=== PATIENT | male | born 1940 | race Caucasian/White ===

== ENCOUNTER → 2023-08-31 09:33 | Outpatient (REF) | payer MEDICARE, OTHER, SELFPAY | LOC: RAD 09:33 | PROVIDERS: ATTENDING PHYSICIAN Surgery Vascular Surgery; FAMILY PHYSICIAN Family Medicine | DX: I71.40 Abdominal aortic aneurysm, without rupture, unspecified (principal); I73.9 Peripheral vascular disease, unspecified; I65.23 Occlusion and stenosis of bilateral carotid arteries | CPT/HCPCS: 93880; 93922; 93925 ==

== ENCOUNTER → 2023-09-24 12:58 | Outpatient (REF) | payer MEDICARE, OTHER, SELFPAY ==
[2023-09-24 13:50] LABS: % Basophils 0.2 % (0-2); % Eosinophils 2.1 % (0-6); % Immature Granulocytes 0.4 % (0-0.5); % Lymphocytes 12.1 % (20.5-51.1); % Monocytes 6.1 % (1.7-9.3); % Neutrophils 79.1 % (42.2-75.2); Absolute Eosinophils 0.2 10^3/uL (0-0.7); Absolute Monocytes 0.5 10^3/uL (0.1-0.6); Absolute Neutrophils 6.3 10^3/uL (1.4-6.5); Hemoglobin 13.1 g/dL (13.0-18.0); Mean Corp Hgb Conc. 34.5 g/dL (33.0-37.0); Mean Corpuscular Hgb 33.4 pg (27.0-31.0); Mean Corpuscular Volume 96.9 fL (80.0-94.0); Mean Platelet Volume 9.8 fL (7.4-10.4); Nucleated Red Blood Cells % 0 % (-); Platelet Count 142 10^3/uL (130-400); Red Blood Cell Count 3.92 10^6/uL (4.70-6.10); Red Cell Dist. Width 14.6 % (11.5-14.5)
[2023-09-24 14:58] LABS: ALT (SGPT) 16 U/L (0-50); AST (SGOT) 29 U/L (17-59); Albumin 4.1 g/dl (3.5-5.0); Alkaline Phosphatase 110 U/L (38-126); Blood Urea Nitrogen 23 mg/dl (9-20); Calcium 9.2 mg/dl (8.4-10.2); Carbon Dioxide 29 mmol/L (22-30); Chloride 102 mmol/L (98-107); Glucose 75 mg/dl (70-99); HDL Cholesterol 55 mg/dl; LDL Cholesterol, Calculated 56 mg/dl; Potassium 3.8 mmol/L (3.5-5.1); Sodium 140 mmol/L (135-145); Total Bilirubin 1.3 mg/dl (0.2-1.3); Total Cholesterol 131 mg/dl (50-199); Total Protein 6.6 g/dl (6.3-8.2); Triglyceride 101 mg/dl (10-149); Very Low Density Lipoprotein 20 mg/dl (0-30); eGFR > 60.00
== END ==
LOC: REG 12:58
PROVIDERS: ATTENDING PHYSICIAN Family Medicine
DX: I50.32 Chronic diastolic (congestive) heart failure (principal); E78.00 Pure hypercholesterolemia, unspecified; R35.0 Frequency of micturition
CPT/HCPCS: 36415; 80053; 80061; 85025; 87086

== ENCOUNTER → 2024-03-18 14:42 | Outpatient (REF) | payer MEDICARE, OTHER, SELFPAY | LOC: RAD 14:42 | PROVIDERS: ATTENDING PHYSICIAN Surgery Vascular Surgery; FAMILY PHYSICIAN Family Medicine | DX: I73.9 Peripheral vascular disease, unspecified (principal) | CPT/HCPCS: 93922; 93925 ==

== ENCOUNTER → 2024-04-03 13:00 | Outpatient (REF) | payer MEDICARE, OTHER, SELFPAY ==
[2024-04-03 14:29] LABS: % Basophils 0.3 % (0-2); % Eosinophils 2.5 % (0-6); % Immature Granulocytes 0.7 % (0-0.5); % Lymphocytes 11.4 % (20.5-51.1); % Monocytes 6.7 % (1.7-9.3); % Neutrophils 78.4 % (42.2-75.2); Absolute Eosinophils 0.2 10^3/uL (0-0.7); Absolute Immature Granulocytes 0.1 10^3/uL (0-0.05); Absolute Lymphocytes 0.8 10^3/uL (1.2-3.4); Absolute Monocytes 0.5 10^3/uL (0.1-0.6); Absolute Neutrophils 5.6 10^3/uL (1.4-6.5); Hematocrit 38.5 % (39.0-52.0); Hemoglobin 12.7 g/dL (13.0-18.0); Mean Corpuscular Hgb 32.4 pg (27.0-31.0); Mean Corpuscular Volume 98.2 fL (80.0-94.0); Mean Platelet Volume 9.7 fL (7.4-10.4); Nucleated Red Blood Cells % 0 % (-); Platelet Count 150 10^3/uL (130-400); Red Blood Cell Count 3.92 10^6/uL (4.70-6.10); Red Cell Dist. Width 14.5 % (11.5-14.5); White Blood Cell Count 7.2 10^3/uL (4.8-10.8)
[2024-04-03 14:39] LABS: Urine Albumin Negative (Neg - Trace); Urine Bilirubin Negative (Negative); Urine Character Clear (Clear); Urine Color Yellow; Urine Glucose Negative (Negative); Urine Ketone Negative (Negative); Urine Leukocyte Negative (Negative); Urine Nitrite Negative (Negative); Urine Occult Blood Negative (Negative); Urine Urobilinogen Negative (Neg - 1+)
[2024-04-03 15:00] LABS: Blood Urea Nitrogen 16 mg/dl (9-20); Carbon Dioxide 33 mmol/L (22-30); Chloride 98 mmol/L (98-107); Glucose 98 mg/dl (70-99); Potassium 3.8 mmol/L (3.5-5.1); Sodium 141 mmol/L (135-145); eGFR 49.56
== END ==
LOC: REG 13:00
PROVIDERS: ATTENDING PHYSICIAN Family Medicine
DX: Z01.818 Encounter for other preprocedural examination (principal)
CPT/HCPCS: 36415; 80048; 81003; 85025

== ENCOUNTER 2024-05-26 12:34 | Outpatient (RCR) | payer MEDICARE, OTHER, SELFPAY | END 2024-05-26 23:59 | disposition home or self-care (01) | LOC: RPT 12:34 | PROVIDERS: ATTENDING PHYSICIAN Physician Assistant Surgical; FAMILY PHYSICIAN Family Medicine | DX: M25.561 Pain in right knee (principal); M25.562 Pain in left knee; Z73.6 Limitation of activities due to disability; R26.2 Difficulty in walking, not elsewhere classified; M62.81 Muscle weakness (generalized); M25.512 Pain in left shoulder; Z91.81 History of falling | CPT/HCPCS: 97162; 97530 ==

== ENCOUNTER 2024-07-08 13:42 | Inpatient (IN) | payer MEDICARE, OTHER, SELFPAY ==
[2024-07-07] VITALS (15 sets, daily range): BP systolic 111–187; BP diastolic 55–80; PULSE 68; O2SAT 97; BMI 22.4
[2024-07-07 01:54] LABS: Hematocrit 36.5 % (39.0-52.0); Hemoglobin 12.5 g/dL (13.0-18.0); Mean Corp Hgb Conc. 34.2 g/dL (33.0-37.0); Mean Corpuscular Hgb 32.1 pg (27.0-31.0); Mean Corpuscular Volume 93.8 fL (80.0-94.0); Mean Platelet Volume 9.5 fL (7.4-10.4); Platelet Count 158 10^3/uL (130-400); Red Blood Cell Count 3.89 10^6/uL (4.70-6.10); Red Cell Dist. Width 14.8 % (11.5-14.5); White Blood Cell Count 8.8 10^3/uL (4.8-10.8)
[2024-07-07 02:12] LABS: ALT (SGPT) 17 U/L (0-50); AST (SGOT) 28 U/L (17-59); Albumin 4.4 g/dl (3.5-5.0); Alkaline Phosphatase 140 U/L (38-126); Blood Urea Nitrogen 22 mg/dl (9-20); Calcium 8.7 mg/dl (8.4-10.2); Carbon Dioxide 24 mmol/L (22-30); Chloride 102 mmol/L (98-107); Estimated Creatinine Clearance 48 ml/min; Glucose 114 mg/dl (70-99); Potassium 3.5 mmol/L (3.5-5.1); Sodium 140 mmol/L (135-145); Total Bilirubin 1.6 mg/dl (0.2-1.3); Total Protein 6.9 g/dl (6.3-8.2); eGFR > 60.00
[2024-07-07 04:42] LABS: Urine Albumin Negative (Neg - Trace); Urine Bilirubin Negative (Negative); Urine Character Clear (Clear); Urine Color Yellow; Urine Glucose Negative (Negative); Urine Ketone Negative (Negative); Urine Leukocyte Negative (Negative); Urine Nitrite Negative (Negative); Urine Occult Blood Negative (Negative); Urine Specific Gravity 1.015 (<1.030); Urine Urobilinogen Negative (Neg - 1+)
[2024-07-07 04:59] LABS: Lipase 80 U/L (23-300)
--- NOTE | 2024-07-07 06:26 | ED.GENMED ---
History of Present Illness
General
Chief Complaint: Headache
Source: patient and family
Exam Limitations: none
Time Seen by Provider: 07/07/24 06:09
History of Present Illness
History of Present Illness:
83-year-old male who presents with headache and dizziness that started at around midnight. Patient states he was fine during the day and suddenly felt the symptoms come on. Patient also states he got dizzy and started vomiting. He is
anticoagulated due to history of A-fib. Daughter states that she called him after work and he seemed fine. She states he was confused the last night. He did not know his age at all saying things that did not make sense. The patient states he
does feel a bit better but does still have symptoms. No fevers. No chest pain. No cough.
Past History
Past History
ED Past Medical History: Arrthythmia (Atrial fibrillation), CAD, COPD, GERD, HTN, Hypercholesterolemia, PR, Other (Peripheral vascular disease) and Other (ischemic colitis with bowel resection appendectomy and cholecystectomy)
ED Past Surgical History: Other (Carotid endarterectomy, iliac stent)
Social History
Tobacco: Former smoker
Alcohol: None
Drug: None
Personal:
Living: with family
Employment: Retired
Family History
Family History: Other (Noncontributory)
Phy Exam
Physical Exam
Physical Exam:
CONSTITUTIONAL Patient alert and oriented to person, place and time. Well-appearing. Vital signs reviewed.
HEAD atraumatic, normocephalic.
EYES eyelids normal to inspection, Extraocular muscles intact, Conjunctiva normal, Sclera normal.
NECK normal range of motion, Trachea midline, no jugular venous distention.
RESPIRATORY CHEST No respiratory distress noted, Chest expansion equal, Bilateral breath sounds clear.
CARDIOVASCULAR irregularly irregular
ABDOMEN abdomen nontender, Bowel sounds normal. No distention.
BACK normal inspection, no obvious deformities
UPPER EXTREMITY range of motion normal, Motor strength normal, no cyanosis, no edema.
LOWER EXTREMITY range of motion normal, Motor strength normal, no cyanosis, no edema.
NEURO Speech normal, No focal motor deficits, Cranial Nerves intact to screening exam. Normal [id number]. No pronator drift
SKIN skin warm, dry, and normal in color.
Course
Orders/Labs/Results
Orders:
Orders
07/07/24 01:26
CMP [Comprehensive Metabolic Panel] Urgent
Lipase Urgent
Comment: ADD ON
07/07/24 01:27
Complete Blood Count/No Diff Urgent
07/07/24 01:28
CT Head W/o Iv Contrast Urgent
Comment:
Reason For Exam: fall, dizzy, VAUGHN, +blood thinners
07/07/24 04:22
Add On- LAB Urgent
Tests Added?: Lipase
07/07/24 04:26
Urine Culture Reflexed from UA [Urinalysis Reflex To Culture] Urgent
Date Specimen was Collected: 07/07/24
Time Specimen was Collected: 04:21
07/07/24 06:25
CT Head & Neck Angio W/wo IV Urgent
Comment:
Reason For Exam: dizziness, nausea, VAUGHN
07/07/24 06:32
Electrocardiogram (*1) Urgent
Reason for Study: Vertigo / Dizzy
EKG- Treatment ONCE
Abnormal Lab Results
07/07/24 07/07/24
01:26 01:27
RBC 3.89 L 10^6/uL
(4.70-6.10)
Hgb 12.5 L g/dL
(13.0-18.0)
Hct 36.5 L %
(39.0-52.0)
MCH 32.1 H pg
(27.0-31.0)
RDW 14.8 H %
(11.5-14.5)
BUN 22 H mg/dl
(9-20)
Glucose 114 H mg/dl
(70-99)
Total Bilirubin 1.6 H mg/dl
(0.2-1.3)
Alkaline Phosphatase 140 H U/L
(38-126)
07/07/24 01:27
07/07/24 01:26
Vital Signs
Initial and Last Documented VS:
Initial Vital Signs
Temp Pulse Resp BP Pulse Ox
96.9 F L 71 29 180/70 98
07/07/24 01:13 07/07/24 01:13 07/07/24 01:13 07/07/24 01:13 07/07/24 01:13
Last Documented Vital Signs
Temp Pulse Resp BP Pulse Ox
97.6 F 76 14 181/73 94
07/07/24 04:21 07/07/24 09:05 07/07/24 09:05 07/07/24 09:05 07/07/24 07:00
MDM/Problems Addressed
Differential Diagnosis Includes:
CVA, dissection, vertigo, central vertigo, peripheral vertigo, electrolyte imbalance, arrhythmia
MDM/Problems Addressed:
Chronic A-fib, acute headache, acute uncontrolled hypertension
*Radiology
Radiology exam reviewed: radiology read reviewed
*Pulse Oximetry
Patient hypoxic: no
*[employer] Consult[employer] Interpretation
Rate: normal
Interpretation: abnormal
Rhythm: a-fib
*Critical Care Note
Total Time (30-74mins, 75-104mins- exclusive of procedures): Not Applicable
Data Reviewed
Review of Other/Old Records Reveals: Testing ([facility] reviewed from June 2022 showing early thrombus)
Source: patient and family
Prescriptions/Medications Considered But Not Given:
Consider TNK but no focal neurologic findings
Patient Management
Discussion with other providers: Hospitalist
Escalation/DeEscalation of care consider admission/obs:
Elderly patient with history of atrial clot history of risk factors who presents with acute onset of dizziness, vomiting and change in mental status. Also admits to headache. CT imaging noted. Given his risk factors may benefit from neurology
evaluation possibly MRI.
ED Attending Note
-
Portions of this chart may have been created with voice recognition software.� Occasional wrong word or��sound alike� substitutions may have occurred due to the inherent limitations of voice recognition software.
Discharge Plan
Departure
Prescriptions:
No Action
pantoprazole 40 MG tablet,delayed release (DR/EC)
40 mg PO BID
furosemide 40 MG tablet
40 mg PO DAILY Qty: 30 6RF
atorvastatin 80 MG tablet
80 mg PO QPM
allopurinol 100 MG tablet
100 mg PO DAILY
aspirin 81 MG tablet,delayed release (DR/EC)
81 mg PO DAILY
dicyclomine 10 MG capsule
10 mg PO BID
ezetimibe 10 MG tablet
10 mg PO DAILY
carvedilol 3.125 MG tablet
3.125 mg PO DAILY
fluticasone furoate-vilanterol [Breo Ellipta] 1 EACH blister with device
1 inh IH BID
ipratropium-albuterol 0.5 mg-3 mg(2.5 mg base)/3 mL Solution For Nebulization
3 ml INHALATION Q4H PRN (Reason: sob)
potassium chloride [Klor-Con 10] 10 mEq Tablet Extended Release
10 meq PO DAILY
Eliquis 5 mg Tablet
5 mg PO BID
sertraline 25 MG tablet
25 mg PO HS
sertraline 50 MG tablet
50 mg PO HS
Referrals:
Aretha Serna DO [Family Provider] -
Interventions
Interventions:
*Risk Screen - Suicide Last Done: 07/07/24 01:13
*General Assessment Last Done: 07/07/24 01:13
*Neglect/Abuse Screening Last Done: 07/07/24 01:13
*ED- Fall Risk Assessment Last Done: 07/07/24 01:13
ED- Neurological Assessment Last Done: 07/07/24 01:29
Discharge Date and Time
Print Language: GABONESE
--- NOTE | 2024-07-07 10:27 | HPS.HSE ---
Family Physician
-
Family Physician: Aretha Serna
Chief Complaint
-
Nausea, vomiting, lightheadedness.
History of Present Illness
Patient is 83 years old male with extensive cardiovascular history who presents from home with rather acute onset of nausea, vomiting, abdominal discomfort following with lightheadedness. All symptoms started the evening prior to presentation to
the emergency room. Patient denies any abdominal pain, diarrhea or hematochezia. She denies any loss of consciousness, respiratory complaints. He denies any focal neurologic symptoms. Patient denies any urinary symptoms. He denies any fever or
chills. Denies any loss of consciousness.
Patient lives independently. Has chronic ambulatory dysfunction predominantly secondary to advanced left knee osteoarthritis. Uses walker.
Patient reports visit to the emergency room close to 2 weeks prior to this presentation after fall where he was found to have 5 broken ribs on the left.
Medical History
Past Medical History
Past Medical History: Reports Arrhythmia, CAD and CHF
Additional Past Medical History:
1. Osteoarthritis.
2. Hypertension.
3. Hyperlipidemia.
4. Coronary artery disease/myocardial infarction, status post PCI
with stent to LM-LAD 2016; on Aspirin.
5. Bilateral carotid artery stenosis, status post left carotid
endarterectomy, 2010, and right carotid endarterectomy 2018.
6. Peripheral vascular disease with claudication, status post left
common iliac artery stent and bilateral external iliac artery
stents 2010.
7. Left subclavian stenosis, asymptomatic.
8. Paroxysmal atrial fibrillation, pharmacological therapy with
Carvedilol, oral anticoagulation with Eliquis.
9. Persistent left atrial appendage thrombus, on Eliquis.
10. Congestive heart failure, mildly reduced ejection fraction.
11. Mild valvular disease.
12. COPD.
13. Chronic kidney disease, stage 3.
14. GERD.
15. History of diverticulitis per records.
16. Ischemic colitis, status post hemicolectomy 01/2018.
17. Mesenteric ischemia, status post stenting of superior
mesenteric artery.
18. Chronic diarrhea.
19. Multilevel degenerative disc disease.
20. Ambulatory dysfunction.
21. Migraines.
22. Anemia, likely of chronic disease.
23. Gout.
24. Depression.
25. Hearing impairment bilaterally.
26. Current, infrequent tobacco use.
27. Daily alcohol.
Past Surgical History: Reports Other
Social History
Tobacco: Non-smoker
Alcohol: Daily
Drug: None
Personal:
Living: With Family
Employment: Not Employed
Family History
Family History: Not pertinent
Allergies / Home Medications
Allergies reflects when Allergies were last updated in [employer].
Home Medications with original date entered in [facility]
Allergy/Medication List:
Allergies
Allergy/AdvReac Type Severity Reaction Status Date / Time
acetaminophen [From Tylenol] Allergy Itching Verified 07/07/24 01:25
ketorolac [From Toradol] Allergy Itching Verified 07/07/24 01:25
shellfish derived Allergy Swelling Verified 07/07/24 01:25
Home Medications
pantoprazole 40 mg tablet,delayed release 40 mg PO BID Gastrointestinal issue 08/09/16
furosemide 40 mg tablet 40 mg PO DAILY #30 tabs 08/22/16
allopurinol 100 mg tablet 100 mg PO DAILY Gout 10/24/17
aspirin 81 mg tablet,delayed release 81 mg PO DAILY Blood clot prevention/tx 10/24/17
atorvastatin 80 mg tablet 80 mg PO QPM High cholesterol 10/24/17
dicyclomine 10 mg capsule 10 mg PO BID Gastrointestinal issue 07/01/18
carvedilol 3.125 mg tablet 3.125 mg PO DAILY Heart disease 11/23/18
ezetimibe 10 mg tablet 10 mg PO DAILY High cholesterol 11/23/18
fluticasone furoate 100 mcg-vilanterol 25 mcg/dose inhalation powder (Breo Ellipta) 1 inh IH BID Lung/breathing issues 04/04/19
ipratropium 0.5 mg-albuterol 3 mg (2.5 mg base)/3 mL nebulization soln 3 ml inhalation Q4H PRN sob 05/02/22
potassium chloride 10 mEq tablet,extended release (Klor-Con) 10 meq PO DAILY 05/02/22
apixaban 5 mg tablet (Eliquis) 5 mg PO BID 07/04/22
sertraline 25 mg tablet 25 mg PO HS 07/25/23
sertraline 50 mg tablet 50 mg PO HS 07/25/23
Review of Systems
-
A 12 point ROS was completed and negative except as noted: Yes
Physical Exam
Vital Signs
Vital Signs
Temp Pulse Resp BP Pulse Ox
97.6 F 76 16 181/73 94
07/07/24 04:21 07/07/24 09:05 07/07/24 10:02 07/07/24 09:05 07/07/24 07:00
Physical Exam
General: Well Developed, Well Nourished and No Apparent Distress
HEENT: NormoCephalic, Moist mucous membranes and Atraumatic
Respiratory: Clear
Cardiac: S1/S2 and Regular Rhythm; No Murmur or Rub
GI: Soft, Non Tender, Non Distended and Normal Bowel Sounds; No Organomegaly
Rectal: Deferred by Provider
Musculoskeletal: No Clubbing, No Cyanosis and No Edema
Skin: No Rash
Neuro: Nonfocal/grossly intact
Laboratory Results
-
07/07/24 01:27
07/07/24 01:26
Laboratory Results
Total Bilirubin 1.6 mg/dl (0.2-1.3) H 07/07/24 01:26
AST 28 U/L (17-59) 07/07/24 01:26
ALT 17 U/L (0-50) 07/07/24 01:26
Alkaline Phosphatase 140 U/L (38-126) H 07/07/24 01:26
Lipase 80 U/L (23-300) 07/07/24 01:26
Impression/Plan
-
IMPRESSION:
Presentation with acute onset of nausea, vomiting, abdominal discomfort and lightheadedness.
Acute gastroenteritis suspected
Lightheadedness without dizziness or vertigo and no focal neurologic findings.
Prolonged QT
Mild hypokalemia
Recent fall with left-sided rib fractures
Other conditions:
Coronary artery disease/myocardial infarction, status post PCI. with stent to LM-LAD 2016; on Aspirin.
Bilateral carotid artery stenosis, status post left carotid enterectomy 2010 and right carotid enterectomy 2018
PAD, status post left common iliac artery stent and bilateral external iliac artery stents 2010.
Left subclavian stenosis, asymptomatic
Paroxysmal atrial fibrillation with left atrial appendage thrombus. On anticoagulation with Eliquis.
Chronic CHF mildly reduced EF 45-50%.
Mild valvular disease.
COPD.
Chronic kidney disease stage III by history.
GERD.
Diverticulitis.
History of mesenteric ischemia with stenting of superior mesenteric artery
Status post hemicolectomy 01/2018
Chronic diarrhea.
Chronic ambulatory dysfunction, multifactorial due to DJD including advanced left knee osteoarthritis.
Gout.
Infrequent tobacco use
Daily alcohol use
PLAN:
Presentation with acute onset of nausea, vomiting and abdominal discomfort
Afebrile, nontoxic-appearing
Abdominal examination benign.
LFTs only relevant for mild hyperbilirubinemia at 1.6.
? Acute gastroenteritis.
Patient does have a history of mesenteric ischemia with SMA stent in place.
Admit for close monitoring.
Clear liquid diet.
Follow serial abdominal examination
Follow electrolytes.
Hold dicyclomine
Lightheadedness.
Patient denies any dizziness or vertigo.
Denies falls or loss of consciousness.
Neurologic examination without focal findings.
CT of the head/CTA with no acute abnormalities.
Continue close monitoring
Orthostatic vitals.
Chronic CHF mildly reduced EF.
Volume status rather compensated possibly mild dehydration given increased BUN.
Will continue preadmission regimen including Coreg.
Check for CHF BNP as a baseline
Resume oral Lasix on 07/07.
Paroxysmal atrial fibrillation.
Left atrial appendage thrombus.
Rate control with Coreg.
Anticoagulation Eliquis
Prolonged QTc.
Mild hypokalemia
Replete potassium.
Follow ECG in the morning
CAD with history of revascularization as above.
Continue Coreg
Continue aspirin, statin, Zetia
Chronic ambulatory dysfunction, multifactorial due to severe osteoarthritis of the left knee, spinal DJD.
Recent fall with left-sided rib fracture.
Check chest x-ray for follow-up.
Physical therapy evaluation
Full code
DVT prophylaxis:
[2024-07-07 11:26] LABS: NT-proBNP 6380 pg/ml; Troponin I 0.021 ng/ml
[2024-07-07] MEDS: KCL 40 MEQ PO (13:38)
[2024-07-07] MEDS: ASPIR LOW (ENTERIC COATED) 81 MG PO (13:39)
[2024-07-07] MEDS: ELIQUIS 5 MG PO ×2 (13:39→20:17)
[2024-07-07] MEDS: COREG 3.125 MG PO (13:41)
[2024-07-07] MEDS: ZYLOPRIM 100 MG PO (13:41)
[2024-07-07] MEDS: LIPITOR 80 MG PO (17:07)
[2024-07-07] MEDS: ULTRAM 50 MG PO (17:54)
--- NOTE | 2024-07-07 18:55 | PTCARENOTE ---
Pt admitted to rm 339-1 from ER. C/o lightheadedness - transferred to bed from stretcher. Calm/cooperative, Ox3, VSS. C/o 10/19 headache. TT to cross cover provider - ordered tramadol x 1, administered. NIH completed, scored a 0. Discussed with
hospitalist if need to continue - no focal neuro complaints, no concern to continue NIH.
[2024-07-07] MEDS: SYMBICORT 80/4.5 MCG INHALER 2 PUFF INH (19:49)
[2024-07-07] MEDS: MOTRIN 200 MG PO (20:15)
[2024-07-07] MEDS: PROTONIX 40 MG PO (20:17)
[2024-07-07] MEDS: ZOLOFT 25 MG PO (23:04)
[2024-07-07] MEDS: ZOLOFT 50 MG PO (23:04)
[2024-07-08] VITALS (7 sets, daily range): BP systolic 113–165; BP diastolic 60–90; PULSE 72–80
--- NOTE | 2024-07-08 04:46 | PTCARENOTE ---
PT received prescribed prn tramadol for headache 8 out of 10. After 1 hour Pt reassessed and pain was still 8 out of 10 so provider contacted. Motrin was then given which helped PT sleep through the night.
[2024-07-08] MEDS: SYMBICORT 80/4.5 MCG INHALER 2 PUFF INH ×2 (07:54→19:53)
[2024-07-08] MEDS: ASPIR LOW (ENTERIC COATED) 81 MG PO (08:43)
[2024-07-08] MEDS: LASIX 40 MG PO (08:43)
[2024-07-08] MEDS: ZYLOPRIM 100 MG PO (08:43)
[2024-07-08] MEDS: PROTONIX 40 MG PO ×2 (08:43→20:23)
[2024-07-08] MEDS: ZETIA 10 MG PO (08:43)
[2024-07-08] MEDS: ELIQUIS 5 MG PO ×2 (08:43→20:23)
[2024-07-08] MEDS: COREG 3.125 MG PO (08:44)
[2024-07-08] MEDS: KCL 10 MEQ PO (08:51)
[2024-07-08 11:34] LABS: % Basophils 0.1 % (0-2); % Eosinophils 0.7 % (0-6); % Immature Granulocytes 0.3 % (0-0.5); % Lymphocytes 10.5 % (20.5-51.1); % Monocytes 5.8 % (1.7-9.3); % Neutrophils 82.6 % (42.2-75.2); Absolute Eosinophils 0.1 10^3/uL (0-0.7); Absolute Lymphocytes 0.7 10^3/uL (1.2-3.4); Absolute Monocytes 0.4 10^3/uL (0.1-0.6); Absolute Neutrophils 5.8 10^3/uL (1.4-6.5); Hematocrit 34.1 % (39.0-52.0); Hemoglobin 11.4 g/dL (13.0-18.0); Mean Corp Hgb Conc. 33.4 g/dL (33.0-37.0); Mean Corpuscular Hgb 31.9 pg (27.0-31.0); Mean Corpuscular Volume 95.5 fL (80.0-94.0); Mean Platelet Volume 9.6 fL (7.4-10.4); Nucleated Red Blood Cells % 0 % (-); Platelet Count 120 10^3/uL (130-400); Red Blood Cell Count 3.57 10^6/uL (4.70-6.10); White Blood Cell Count 7.1 10^3/uL (4.8-10.8)
[2024-07-08 11:53] LABS: Blood Urea Nitrogen 22 mg/dl (9-20); Calcium 8.7 mg/dl (8.4-10.2); Carbon Dioxide 27 mmol/L (22-30); Chloride 103 mmol/L (98-107); Estimated Creatinine Clearance 44 ml/min; Glucose 95 mg/dl (70-99); Potassium 4.1 mmol/L (3.5-5.1); Sodium 138 mmol/L (135-145); eGFR 59.63
[2024-07-08] MEDS: TYLENOL 650 MG PO ×2 (13:13→20:21)
--- NOTE | 2024-07-08 13:42 | W.PN.HOSP.TC ---
Today's Communication/Plan
-
Advance diet.
Continue oral Lasix.
Monitor for orthostasis.
Monitor volume status closely if hypoxic would be a low threshold to provide additional diuresis
Physical therapy assessment.
Assessment / Plan
Assessment / Plan
IMPRESSION:
Presentation with acute onset of nausea, vomiting, abdominal discomfort and lightheadedness.
Acute gastroenteritis suspected
Lightheadedness without dizziness or vertigo and no focal neurologic findings.
Prolonged QT
Mild hypokalemia
Headache
Recent fall with left-sided rib fractures
Other conditions:
Coronary artery disease/myocardial infarction, status post PCI. with stent to LM-LAD 2016; on Aspirin.
Bilateral carotid artery stenosis, status post left carotid enterectomy 2010 and right carotid enterectomy 2018
PAD, status post left common iliac artery stent and bilateral external iliac artery stents 2010.
Left subclavian stenosis, asymptomatic
Paroxysmal atrial fibrillation with left atrial appendage thrombus. On anticoagulation with Eliquis.
Chronic CHF mildly reduced EF 45-50%.
Mild valvular disease.
COPD.
Chronic kidney disease stage III by history.
GERD.
Diverticulitis.
History of mesenteric ischemia with stenting of superior mesenteric artery
Status post hemicolectomy 01/2018
Chronic diarrhea.
Chronic ambulatory dysfunction, multifactorial due to DJD including advanced left knee osteoarthritis.
Gout.
Infrequent tobacco use
Daily alcohol use
PLAN:
Presentation with acute onset of nausea, vomiting and abdominal discomfort
Afebrile, nontoxic-appearing
Abdominal examination benign.
LFTs only relevant for mild hyperbilirubinemia at 1.6.
? Acute gastroenteritis.
Patient does have a history of mesenteric ischemia with SMA stent in place.
Gastrointestinal symptoms improved. Advance diet and monitor
Hold dicyclomine
Lightheadedness.
Patient denies any dizziness or vertigo.
Denies falls or loss of consciousness.
Neurologic examination without focal findings.
CT of the head/CTA with no acute abnormalities.
Continue close monitoring
Orthostatic vitals.
Chronic CHF mildly reduced EF.
Volume status rather compensated possibly mild dehydration given increased BUN.
Will continue preadmission regimen including Coreg.
Resume oral Lasix on 07/07.
Paroxysmal atrial fibrillation.
Left atrial appendage thrombus.
Rate control with Coreg.
Anticoagulation Eliquis
Prolonged QTc.
Mild hypokalemia
Potassium repleted.
QTc improved
CAD with history of revascularization as above.
Continue Coreg
Continue aspirin, statin, Zetia
Chronic ambulatory dysfunction, multifactorial due to severe osteoarthritis of the left knee, spinal DJD.
Recent fall with left-sided rib fracture.
Check chest x-ray for follow-up.
Physical therapy evaluation
Full code
DVT prophylaxis:
Anticipated Discharge: 24 - 48 hours
Subjective/Interval History
-
Date of Service: July 08, 2024
Objective Data
-
Labs:
Laboratory Results
07/08/24
11:10
WBC 7.1
Hgb 11.4 L
Hct 34.1 L
Plt Count 120 L D
Sodium 138
Potassium 4.1
Chloride 103
Carbon Dioxide 27
BUN 22 H
Creatinine 1.2
Glucose 95
Calcium 8.7
Vital Signs:
Vital Signs
Temp Pulse Resp BP Pulse Ox
97.6 F 61 20 117/60 96
07/08/24 11:56 07/08/24 11:56 07/08/24 11:56 07/08/24 11:56 07/08/24 11:56
I&O
07/07/24 07/08/24 07/09/24
06:59 06:59 06:59
Intake Total 1440 / 1440
Output Total 200 / 200
Balance 1240 / 1240
Physical Exam
-
General: Well Developed and No Apparent Distress
HEENT: Normocephalic, Atraumatic and Moist Mucous Membranes
Respiratory: Clear to Auscultation
Cardiac: Regular Rhythm and S1/S2; Negative Murmur, Rub or Gallop
GI: Soft, Nontender, Nondistended and Normal Bowel Sounds; Negative Organomegaly
Rectal: Deferred by Provider
Musculoskeletal: No Clubbing, No Cyanosis and No Edema
Skin: Negative Rash
Neuro: Nonfocal/Grossly Intact
[2024-07-08 15:14] LABS: ALT (SGPT) 16 U/L (0-50); AST (SGOT) 24 U/L (17-59); Albumin 3.6 g/dl (3.5-5.0); Alkaline Phosphatase 132 U/L (38-126); Direct Bilirubin 0.4 mg/dl (0.0-0.4); Total Bilirubin 1.8 mg/dl (0.2-1.3); Total Protein 5.8 g/dl (6.3-8.2)
--- NOTE | 2024-07-08 16:45 | CM ---
P{t sleeping . Spoke with Marguerite ellison Pt lives with his Angélica who lives in a 1 story home with 2 step to enter.. He is assisted in all activities of daily living.He was confused and brought into ED. AMES letter explained to dgt.Dgt declined
to sign.
Pt uses walker and cane
Pt [facility] SNF history
Pharmacy [facility]
PCP DR Serna
PLAN Will need PT and OT for dc plan . Dgt believes he needs SNF . He is on observation
[2024-07-08] MEDS: LIPITOR 80 MG PO (17:40)
[2024-07-08] MEDS: MOTRIN 200 MG PO (22:01)
[2024-07-08] MEDS: ZOLOFT 50 MG PO (22:07)
[2024-07-08] MEDS: ZOLOFT 25 MG PO (22:07)
[2024-07-09] VITALS (7 sets, daily range): BP systolic 93–159; BP diastolic 48–74; PULSE 60; O2SAT 95; BMI 21.5
--- NOTE | 2024-07-09 05:51 | PTCARENOTE ---
PT complaining of a headache. I gave him Tylenol at 2020 and it did not help. messaged call center operations manager and gave one time dose of motin. Pt asleep and pain free upon reassessments.
[2024-07-09] MEDS: SYMBICORT 80/4.5 MCG INHALER 2 PUFF INH ×2 (07:49→20:16)
[2024-07-09] MEDS: PROTONIX 40 MG PO ×2 (07:56→20:00)
[2024-07-09] MEDS: ELIQUIS 5 MG PO ×2 (07:56→20:00)
[2024-07-09] MEDS: ZETIA 10 MG PO (07:56)
[2024-07-09] MEDS: KCL 10 MEQ PO (07:56)
[2024-07-09] MEDS: LASIX 40 MG PO (07:56)
[2024-07-09] MEDS: ASPIR LOW (ENTERIC COATED) 81 MG PO (07:56)
[2024-07-09] MEDS: COREG 3.125 MG PO (07:57)
[2024-07-09] MEDS: ZYLOPRIM 100 MG PO (07:57)
[2024-07-09] MEDS: TYLENOL 650 MG PO ×2 (10:06→19:59)
--- NOTE | 2024-07-09 11:38 | W.PN.HOSP.TC ---
Today's Communication/Plan
-
PT/OT assessment.
Discharge planing to rehab/SNF
Assessment / Plan
Assessment / Plan
IMPRESSION:
Presentation with acute onset of nausea, vomiting, abdominal discomfort and lightheadedness.
Acute gastroenteritis suspected
Lightheadedness without dizziness or vertigo and no focal neurologic findings.
Prolonged QT
Mild hypokalemia
Headache
Recent fall with left-sided rib fractures
Other conditions:
Coronary artery disease/myocardial infarction, status post PCI. with stent to LM-LAD 2016; on Aspirin.
Bilateral carotid artery stenosis, status post left carotid enterectomy 2010 and right carotid enterectomy 2018
PAD, status post left common iliac artery stent and bilateral external iliac artery stents 2010.
Left subclavian stenosis, asymptomatic
Paroxysmal atrial fibrillation with left atrial appendage thrombus. On anticoagulation with Eliquis.
Chronic CHF mildly reduced EF 45-50%.
Mild valvular disease.
COPD.
Chronic kidney disease stage III by history.
GERD.
Diverticulitis.
History of mesenteric ischemia with stenting of superior mesenteric artery
Status post hemicolectomy 01/2018
Chronic diarrhea.
Chronic ambulatory dysfunction, multifactorial due to DJD including advanced left knee osteoarthritis.
Gout.
Infrequent tobacco use
Daily alcohol use
PLAN:
Presentation with acute onset of nausea, vomiting and abdominal discomfort
Afebrile, nontoxic-appearing
Abdominal examination benign.
LFTs only relevant for mild hyperbilirubinemia at 1.6.
? Acute gastroenteritis.
Patient does have a history of mesenteric ischemia with SMA stent in place.
Gastrointestinal symptoms improved. Has been tolerating regular diet.
Hold dicyclomine
Lightheadedness.
Patient denies any dizziness or vertigo.
Denies falls or loss of consciousness.
Neurologic examination without focal findings.
CT of the head/CTA with no acute abnormalities.
Continue close monitoring
Chronic CHF mildly reduced EF.
Volume status rather compensated possibly mild dehydration given increased BUN.
Will continue preadmission regimen including Coreg.
Resume oral Lasix on 07/07.
Paroxysmal atrial fibrillation.
Left atrial appendage thrombus.
Rate control with Coreg.
Anticoagulation Eliquis
Prolonged QTc.
Mild hypokalemia
Potassium repleted.
QTc improved
CAD with history of revascularization as above.
Continue Coreg
Continue aspirin, statin, Zetia
Chronic ambulatory dysfunction, multifactorial due to severe osteoarthritis of the left knee, spinal DJD.
Recent fall with left-sided rib fracture.
Check chest x-ray for follow-up.
Physical therapy evaluation
Full code
DVT prophylaxis:
Anticipated Discharge: Today
Subjective/Interval History
-
Date of Service: July 09, 2024
Objective Data
-
Vital Signs:
Vital Signs
Temp Pulse Resp BP Pulse Ox
97.7 F 74 14 159/74 98
07/09/24 10:56 07/09/24 10:56 07/09/24 10:56 07/09/24 10:56 07/09/24 10:56
I&O
07/08/24 07/09/24 07/10/24
06:59 06:59 06:59
Intake Total 1440 / 1440 960 / 960
Output Total 200 / 200 1290 / 1290
Balance 1240 / 1240 -330 / -330
Physical Exam
-
General: Well Developed and No Apparent Distress
HEENT: Normocephalic, Atraumatic and Moist Mucous Membranes
Respiratory: Clear to Auscultation
Cardiac: Regular Rhythm and S1/S2; Negative Murmur, Rub or Gallop
GI: Soft, Nontender, Nondistended and Normal Bowel Sounds; Negative Organomegaly
Rectal: Deferred by Provider
Musculoskeletal: No Clubbing, No Cyanosis and No Edema
Skin: Negative Rash
Neuro: Nonfocal/Grossly Intact
--- NOTE | 2024-07-09 12:16 | CM ---
Pt changed to inpatient . Spoke with Marguerite ellison she was informed of inpatient status . IMM emailed to [email or web address] as requested .
PT indicated Home with PT VS SNF.
Dgt requested SNF [facility] . Referral placed in care port.
PLAN To Snf after located
[2024-07-09] MEDS: LIPITOR 80 MG PO (17:28)
--- NOTE | 2024-07-09 18:23 | PTCARENOTE ---
pt reporting dizziness while laying in bed. pt spent the day laying in bed with poor appetite. BP 142/72 hr in the 60-79s, running afib on the monitor. encouraged pt to increase PO intake. Dr. murcia notified via tt. no further intervention at
this time.
[2024-07-09] MEDS: ZOLOFT 50 MG PO (21:46)
[2024-07-09] MEDS: ZOLOFT 25 MG PO (21:46)
[2024-07-10] VITALS (8 sets, daily range): BP systolic 80–168; BP diastolic 52–85; PULSE 70; O2SAT 99
[2024-07-10] MEDS: SYMBICORT 80/4.5 MCG INHALER 2 PUFF INH ×2 (07:35→19:46)
[2024-07-10] MEDS: PROTONIX 40 MG PO ×2 (08:41→19:56)
[2024-07-10] MEDS: ASPIR LOW (ENTERIC COATED) 81 MG PO (08:41)
[2024-07-10] MEDS: KCL 10 MEQ PO (08:41)
[2024-07-10] MEDS: ZYLOPRIM 100 MG PO (08:41)
[2024-07-10] MEDS: COREG 3.125 MG PO (08:42)
[2024-07-10] MEDS: LASIX 40 MG PO (08:42)
[2024-07-10] MEDS: ZETIA 10 MG PO (08:42)
[2024-07-10] MEDS: ELIQUIS 5 MG PO ×2 (08:42→19:56)
[2024-07-10 13:39] LABS: Blood Urea Nitrogen 19 mg/dl (9-20); Calcium 8.6 mg/dl (8.4-10.2); Carbon Dioxide 32 mmol/L (22-30); Chloride 101 mmol/L (98-107); Estimated Creatinine Clearance 42 ml/min; Glucose 101 mg/dl (70-99); Magnesium 1.9 mg/dl (1.6-2.3); Potassium 3.6 mmol/L (3.5-5.1); Sodium 140 mmol/L (135-145); eGFR 59.63
--- NOTE | 2024-07-10 14:15 | W.PN.HOSP.TC ---
Today's Communication/Plan
-
2.07 seconds spouse. Follow-up EKG with A-fib.
Hold Coreg
Replete potassium and magnesium.
Continue telemetry monitoring.
If recurrent pauses while off Coreg may need further cardiology evaluation including outpatient monitoring.
Assessment / Plan
Assessment / Plan
IMPRESSION:
Presentation with acute onset of nausea, vomiting, abdominal discomfort and lightheadedness.
Acute gastroenteritis suspected
Lightheadedness without dizziness or vertigo and no focal neurologic findings.
Mild hypokalemia
Persistent atrial fibrillation with spouse
Hypokalemia
Hypomagnesemia
Recent fall with left-sided rib fractures
Other conditions:
Coronary artery disease/myocardial infarction, status post PCI. with stent to LM-LAD 2016; on Aspirin.
Bilateral carotid artery stenosis, status post left carotid enterectomy 2010 and right carotid enterectomy 2018
PAD, status post left common iliac artery stent and bilateral external iliac artery stents 2010.
Left subclavian stenosis, asymptomatic
Paroxysmal atrial fibrillation with left atrial appendage thrombus. On anticoagulation with Eliquis.
Chronic CHF mildly reduced EF 45-50%.
Mild valvular disease.
COPD.
Chronic kidney disease stage III by history.
GERD.
Diverticulitis.
History of mesenteric ischemia with stenting of superior mesenteric artery
Status post hemicolectomy 01/2018
Chronic diarrhea.
Chronic ambulatory dysfunction, multifactorial due to DJD including advanced left knee osteoarthritis.
Gout.
Infrequent tobacco use
Daily alcohol use
PLAN:
Presentation with acute onset of nausea, vomiting and abdominal discomfort
Afebrile, nontoxic-appearing
Abdominal examination benign.
LFTs only relevant for mild hyperbilirubinemia at 1.6.
? Acute gastroenteritis.
Patient does have a history of mesenteric ischemia with SMA stent in place.
Gastrointestinal symptoms improved. Has been tolerating regular diet.
Hold dicyclomine
Lightheadedness.
Patient denies any dizziness or vertigo.
Denies falls or loss of consciousness.
Neurologic examination without focal findings.
CT of the head/CTA with no acute abnormalities.
Continue close monitoring
Chronic CHF mildly reduced EF.
Volume status rather compensated possibly mild dehydration given increased BUN.
Will continue preadmission regimen including Coreg.
Resume oral Lasix on 07/07.
Paroxysmal atrial fibrillation.
Left atrial appendage thrombus.
Rate control with Coreg.
Anticoagulation Eliquis
Prolonged QTc.
Mild hypokalemia
Potassium repleted.
QTc improved
2.07 seconds spouse. Follow-up EKG with A-fib.
Hold Coreg
Replete potassium and magnesium.
Continue telemetry monitoring.
If recurrent pauses while off Coreg may need further cardiology evaluation including outpatient monitoring.
CAD with history of revascularization as above.
Continue Coreg
Continue aspirin, statin, Zetia
Chronic ambulatory dysfunction, multifactorial due to severe osteoarthritis of the left knee, spinal DJD.
Recent fall with left-sided rib fracture.
Check chest x-ray for follow-up.
Physical therapy evaluation
Full code
DVT prophylaxis:
Anticipated Discharge: 24 - 48 hours
Subjective/Interval History
-
Date of Service: July 10, 2024
Objective Data
-
Labs:
Laboratory Results
07/10/24
13:05
Sodium 140
Potassium 3.6
Chloride 101
Carbon Dioxide 32 H
BUN 19
Creatinine 1.2
Glucose 101 H
Calcium 8.6
Vital Signs:
Vital Signs
Temp Pulse Resp BP Pulse Ox
97.3 F 67 14 146/62 97
07/10/24 10:59 07/10/24 10:59 07/10/24 10:59 07/10/24 10:59 07/10/24 10:59
I&O
07/09/24 07/10/24 07/11/24
06:59 06:59 06:59
Intake Total 960 / 960 780 / 780
Output Total 1290 / 1290 750 / 750
Balance -330 / -330
Physical Exam
-
General: Well Developed and No Apparent Distress
HEENT: Normocephalic, Atraumatic and Moist Mucous Membranes
Respiratory: Clear to Auscultation
Cardiac: Regular Rhythm and S1/S2; Negative Murmur, Rub or Gallop
GI: Soft, Nontender, Nondistended and Normal Bowel Sounds; Negative Organomegaly
Rectal: Deferred by Provider
Musculoskeletal: No Clubbing, No Cyanosis and No Edema
Skin: Negative Rash
Neuro: Nonfocal/Grossly Intact
[2024-07-10] MEDS: KCL 40 MEQ PO (14:34)
[2024-07-10] MEDS: MAGNESIUM SULFATE 100 IV (14:35)
--- NOTE | 2024-07-10 16:11 | CM ---
PT OT indicate SNF
Spoke with Izabella at [facility] she said there is a bed tomorrow.She would like him by 12:00 noon.
Spoke with Marguerite ellison she is in agreement with [facility] tomorrow.
She requested an ambulance due to orthostatic hypotension.
medical nec form completed .
Pt will need Covid test.
[facility]
report [phone]
fax [phone]
PLAn To [facility] Tomorrow after Covid
[2024-07-10 17:12] LABS: COVID-19 Antigen Negative (Negative)
[2024-07-10] MEDS: LIPITOR 80 MG PO (17:26)
[2024-07-10] MEDS: TYLENOL 650 MG PO (17:26)
[2024-07-10] MEDS: MYLICON 80 MG PO (19:55)
--- NOTE | 2024-07-10 22:00 | PTCARENOTE ---
Pt manual blood pressure noted to be 80/52 with no symptoms. JAGDEEP Cuellar notified. New orders placed. Refer to MAY. Plan of care ongoing.
[2024-07-10] MEDS: ZOLOFT 50 MG PO ×2 (22:18)
[2024-07-10] MEDS: ProAmatine 10 MG PO (22:18)
[2024-07-10] MEDS: ZOLOFT 25 MG PO (22:18)
[2024-07-11 03:15] VITALS: BP 136/77
[2024-07-11 06:17] LABS: % Basophils 0.2 % (0-2); % Eosinophils 1.8 % (0-6); % Immature Granulocytes 0.4 % (0-0.5); % Lymphocytes 11.8 % (20.5-51.1); % Monocytes 7.4 % (1.7-9.3); % Neutrophils 78.4 % (42.2-75.2); Absolute Eosinophils 0.2 10^3/uL (0-0.7); Absolute Monocytes 0.6 10^3/uL (0.1-0.6); Absolute Neutrophils 6.6 10^3/uL (1.4-6.5); Hematocrit 35.5 % (39.0-52.0); Hemoglobin 12.2 g/dL (13.0-18.0); Mean Corp Hgb Conc. 34.4 g/dL (33.0-37.0); Mean Corpuscular Hgb 32.2 pg (27.0-31.0); Mean Corpuscular Volume 93.7 fL (80.0-94.0); Mean Platelet Volume 9.5 fL (7.4-10.4); Nucleated Red Blood Cells % 0 % (-); Platelet Count 150 10^3/uL (130-400); Red Blood Cell Count 3.79 10^6/uL (4.70-6.10); Red Cell Dist. Width 14.9 % (11.5-14.5); White Blood Cell Count 8.4 10^3/uL (4.8-10.8)
[2024-07-11 06:46] LABS: Blood Urea Nitrogen 19 mg/dl (9-20); Calcium 8.7 mg/dl (8.4-10.2); Carbon Dioxide 29 mmol/L (22-30); Chloride 104 mmol/L (98-107); Estimated Creatinine Clearance 42 ml/min; Glucose 88 mg/dl (70-99); Magnesium 2.2 mg/dl (1.6-2.3); Potassium 3.8 mmol/L (3.5-5.1); Sodium 141 mmol/L (135-145); eGFR 59.63
[2024-07-11 07:49] VITALS: BP 131/65
[2024-07-11] MEDS: SYMBICORT 80/4.5 MCG INHALER 2 PUFF INH (08:23)
--- NOTE | 2024-07-11 09:36 | W.DS.TRANS ---
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
-
Discharge Instructions:
Sleep Apnea Risk Intermediate
Discharge Diagnosis/Procedures Acute gastroenteritis suspected
Lightheadedness without dizziness or vertigo and
no focal neurologic findings.
Mild hypokalemia
Persistent atrial fibrillation with spouse
Hypokalemia
Hypomagnesemia
Recent fall with left-sided rib fractures
Other conditions:
Coronary artery disease/myocardial infarction,
status post PCI. with stent to LM-LAD 2016; on
Aspirin.
Bilateral carotid artery stenosis, status post
left carotid enterectomy 2010 and right carotid
enterectomy 2018
PAD, status post left common iliac artery stent
and bilateral external iliac artery stents 2010.
Left subclavian stenosis, asymptomatic
Paroxysmal atrial fibrillation with left atrial
appendage thrombus. On anticoagulation with
Eliquis.
Chronic CHF mildly reduced EF 45-50%.
Mild valvular disease.
COPD.
Chronic kidney disease stage III by history.
GERD.
Diverticulitis.
History of mesenteric ischemia with stenting of
superior mesenteric artery
Status post hemicolectomy 01/2018
Chronic diarrhea.
Chronic ambulatory dysfunction, multifactorial
due to DJD including advanced left knee
osteoarthritis.
Gout.
Infrequent tobacco use
Diet Regular
Instructions:
Stand-Alone Forms:
Changes to Home Medications: Yes
Discharge Medications:
DC Medications w/original date entered in [employer]
pantoprazole 40 mg tablet,delayed release 40 mg PO BID Gastrointestinal issue 08/09/16
furosemide 40 mg tablet 40 mg PO DAILY #30 tabs 08/22/16
allopurinol 100 mg tablet 100 mg PO DAILY Gout 10/24/17
aspirin 81 mg tablet,delayed release 81 mg PO DAILY Blood clot prevention/tx 10/24/17
atorvastatin 80 mg tablet 80 mg PO QPM High cholesterol 10/24/17
ezetimibe 10 mg tablet 10 mg PO DAILY High cholesterol 11/23/18
fluticasone furoate 100 mcg-vilanterol 25 mcg/dose inhalation powder (Breo Ellipta) 1 inh IH BID Lung/breathing issues 04/04/19
ipratropium 0.5 mg-albuterol 3 mg (2.5 mg base)/3 mL nebulization soln 3 ml inhalation Q4H PRN sob 05/02/22
apixaban 5 mg tablet (Eliquis) 5 mg PO BID Blood Clot Prevention/Tx 07/04/22
sertraline 50 mg tablet 50 mg PO HS Mental Health/Anxiety 07/25/23
potassium chloride 20 mEq tablet,extended release(part/cryst) 20 meq PO DAILY #30 tabs 07/11/24
Home Medication Changes
Coreg stopped due to bradycardia and sinus pause
Kcl increased
Pending Results: No
[2024-07-11] MEDS: LASIX 40 MG PO (09:48)
[2024-07-11] MEDS: KCL 20 MEQ PO (09:48)
[2024-07-11] MEDS: PROTONIX 40 MG PO (09:49)
[2024-07-11] MEDS: ASPIR LOW (ENTERIC COATED) 81 MG PO (09:49)
[2024-07-11] MEDS: ELIQUIS 5 MG PO (09:49)
[2024-07-11] MEDS: ZYLOPRIM 100 MG PO (09:49)
[2024-07-11] MEDS: ZETIA 10 MG PO (09:49)
[2024-07-11] MEDS: DULCOLAX 10 MG RECTAL (10:19)
--- NOTE | 2024-07-11 11:15 | CM ---
entered order for discharge.
Spoke with Izabella at [facility] she said there is a bed today.
Spoke with Marguerite ellison she is in agreement with [facility] today.
She requested an ambulance due to orthostatic hypotension.
medical nec form completed .
Negative Covid test.
[facility]
report [phone]
fax [phone]
PLAN To [facility] today
--- NOTE | 2024-07-11 11:21 | PN.CDI ---
CDI
- -
CDI:
Physician Documentation Request
Admit Date: 07/08/24 13:42
Dear Doctor Guzman,
Please review the following and provide your response in the progress notes.
The purpose of this query is to ensure the accuracy of the conditions reported for your patient.
Clinical Indicators:
PN, 07/10
#Persistent atrial fibrillation with spouse
#Paroxysmal atrial fibrillation with left atrial appendage thrombus.
#...On anticoagulation with Eliquis.
Based on the above and your clinical assessment,please provide further specificity regarding atrial fibrillation, such as:
Paroxysmal atrial fibrillation - terminates spontaneously or with intervention within 7 days of onset
Persistent atrial fibrillation - episodes of continuous AF that last more than 7 days and do not self-terminate
Other - please specify
Use of terms such as suspected, likely, concern for, or probable (associated with a specific diagnosis that is being evaluated, monitored, or treated as if it exists) are acceptable and can be coded in the inpatient setting, when documented at the
time of discharge.
Thank you,
Marguerite Borrego RN BSN CCDS
CDI Specialist
Please contact via tiger text
Please use your independent medical judgment in providing your response.
[2024-07-11 11:57] VITALS: BP 99/61
== END 2024-07-11 12:29 | DRG 392 ==
LOC: 3 WEST ACU 13:42
PROVIDERS: Nurse Practitioner Family; Student in an Organized Health Care Education/Training Program; ADMITTING PHYSICIAN Internal Medicine; EMERGENCY PHYSICIAN Emergency Medicine; FAMILY PHYSICIAN Family Medicine
DX: K52.9 Noninfective gastroenteritis and colitis, unspecified (principal); I48.21 Permanent atrial fibrillation; K55.9 Vascular disorder of intestine, unspecified; I50.22 Chronic systolic (congestive) heart failure; I13.0 Hypertensive heart and chronic kidney disease with heart failure and stage 1 through stage 4 chronic kidney disease, or unspecified chronic kidney disease; E87.6 Hypokalemia; I51.3 Intracardiac thrombosis, not elsewhere classified; E83.42 Hypomagnesemia; Z79.899 Other long term (current) drug therapy; Z87.891 Personal history of nicotine dependence; Z79.82 Long term (current) use of aspirin; D63.1 Anemia in chronic kidney disease; E86.0 Dehydration; F32.A Depression, unspecified; G43.909 Migraine, unspecified, not intractable, without status migrainosus; I25.10 Atherosclerotic heart disease of native coronary artery without angina pectoris; I73.9 Peripheral vascular disease, unspecified; J44.9 Chronic obstructive pulmonary disease, unspecified; K21.9 Gastro-esophageal reflux disease without esophagitis; N18.31 Chronic kidney disease, stage 3a; Z79.01 Long term (current) use of anticoagulants; Z90.49 Acquired absence of other specified parts of digestive tract
CPT/HCPCS: 70450; 70496; 70498; 71046; 80048; 80053; 81003; 82248; 83690; 83735; 83880; 84484; 85025; 85027; 87811; 93005; 94640; 97110; 97116; 97163; 97167; 97535; 99285; Q9967

== ENCOUNTER → 2024-11-07 11:54 | Outpatient (REF) | payer MEDICARE, OTHER, SELFPAY ==
[2024-11-07 14:07] LABS: Hematocrit 37.3 % (39.0-52.0); Hemoglobin 11.8 g/dL (13.0-18.0); Mean Corp Hgb Conc. 31.6 g/dL (33.0-37.0); Mean Corpuscular Volume 98.4 fL (80.0-94.0); Nucleated Red Blood Cells % 0 % (-); Platelet Count 161 10^3/uL (130-400); Red Cell Dist. Width 16.2 % (11.5-14.5)
[2024-11-07 14:42] LABS: ALT (SGPT) 16 U/L (0-50); AST (SGOT) 20 U/L (17-59); Albumin 4.1 g/dl (3.5-5.0); Alkaline Phosphatase 155 U/L (38-126); Blood Urea Nitrogen 37 mg/dl (9-20); Calcium 9.1 mg/dl (8.4-10.2); Carbon Dioxide 31 mmol/L (22-30); Chloride 107 mmol/L (98-107); Glucose 92 mg/dl (70-99); HDL Cholesterol 46 mg/dl; LDL Cholesterol, Calculated 55 mg/dl; Potassium 4.5 mmol/L (3.5-5.1); Sodium 142 mmol/L (135-145); Total Protein 6.8 g/dl (6.3-8.2); Very Low Density Lipoprotein 19 mg/dl (0-30); eGFR 59.63
[2024-11-07 15:08] LABS: TSH 2.70 uIU/ml (0.47-4.68)
[2024-11-07 15:27] LABS: Vitamin B12 407 pg/ml (239-931)
== END ==
LOC: REG 11:54
PROVIDERS: ATTENDING PHYSICIAN Internal Medicine Interventional Cardiology; FAMILY PHYSICIAN Family Medicine
DX: E78.00 Pure hypercholesterolemia, unspecified (principal); I42.8 Other cardiomyopathies; R53.83 Other fatigue; Z73.3 Stress, not elsewhere classified; M17.0 Bilateral primary osteoarthritis of knee; J44.1 Chronic obstructive pulmonary disease with (acute) exacerbation; Z71.89 Other specified counseling; J44.9 Chronic obstructive pulmonary disease, unspecified; E78.2 Mixed hyperlipidemia; R41.82 Altered mental status, unspecified
CPT/HCPCS: 36415; 80053; 80061; 82607; 83880; 84443; 85025

== ENCOUNTER → 2024-11-12 11:36 | Outpatient (REF) | payer MEDICARE, OTHER, SELFPAY ==
[2024-11-12 13:24] LABS: PSA, Total - Screen 5.90 ng/ml (0.0-4.0)
[2024-11-12 18:34] LABS: Urine Character Clear (Clear)
[2024-11-12 18:43] LABS: Urine Squamous Cell 0-2 /LPF (Few)
[2024-11-12 18:44] LABS: Urine Red Blood Cell 0-2 /HPF (0-2); Urine White Cell 0-2 /HPF (0-5)
== END ==
LOC: REG 11:36
PROVIDERS: ATTENDING PHYSICIAN Nurse Practitioner Adult Health; FAMILY PHYSICIAN Family Medicine
DX: R39.15 Urgency of urination (principal); N39.41 Urge incontinence; R35.0 Frequency of micturition; R31.29 Other microscopic hematuria; Z12.5 Encounter for screening for malignant neoplasm of prostate
CPT/HCPCS: 36415; 81003; 81015; 87086; G0103

== ENCOUNTER → 2024-11-17 10:42 | Outpatient (REF) | payer MEDICARE, OTHER, SELFPAY | LOC: HWRAD 10:42 | PROVIDERS: ATTENDING PHYSICIAN Internal Medicine Critical Care Medicine; FAMILY PHYSICIAN Family Medicine; REFERRING PHYSICIAN Nurse Practitioner Adult Health | DX: R91.1 Solitary pulmonary nodule (principal); J44.9 Chronic obstructive pulmonary disease, unspecified; E78.2 Mixed hyperlipidemia; I25.10 Atherosclerotic heart disease of native coronary artery without angina pectoris; I48.0 Paroxysmal atrial fibrillation; Z95.5 Presence of coronary angioplasty implant and graft; I77.9 Disorder of arteries and arterioles, unspecified; Z98.890 Other specified postprocedural states; I42.8 Other cardiomyopathies; I73.9 Peripheral vascular disease, unspecified; I65.23 Occlusion and stenosis of bilateral carotid arteries; K55.1 Chronic vascular disorders of intestine; N39.0 Urinary tract infection, site not specified; R39.15 Urgency of urination; N39.41 Urge incontinence; R35.0 Frequency of micturition; R31.29 Other microscopic hematuria | CPT/HCPCS: 70450; 71250; 93880 ==

== ENCOUNTER → 2024-11-18 10:16 | Outpatient (REF) | payer MEDICARE, OTHER, SELFPAY | LOC: RAD 10:16 | PROVIDERS: ATTENDING PHYSICIAN Nurse Practitioner Adult Health; FAMILY PHYSICIAN Family Medicine | DX: N39.0 Urinary tract infection, site not specified (principal); R39.15 Urgency of urination; N39.41 Urge incontinence; R35.0 Frequency of micturition; R31.29 Other microscopic hematuria | CPT/HCPCS: 76770 ==